=== PATIENT | male | born 1995 | race Caucasian/White ===

== ENCOUNTER 2017-03-06 20:50 | Emergency (ER) | payer MEDICAID ==
[~2017-03-06] VITALS: Ht 186.7 cm; Wt 77.6 kg
[~2017-03-06 20:50] MED LIST: INSU100I18 SQ-INSULIN; INSU100I28 SQ-INSULIN
[2017-03-06] MEDS ORDERED: LIDOCAINE 1%, 20ML ONE (21:53)
[2017-03-06] MEDS ORDERED: HYDROcodone/APAP 5/325 TABLET ONE (21:53)
[2017-03-06] MEDS ORDERED: DIPH,PERTUSS(ACELL),TET VAC/PF 0.5 ML IM-VACC ONE ×2 (21:54→22:00)
[2017-03-06] MEDS ORDERED: LIDOCAINE 1%, 20ML SQ ONE (22:00)
[2017-03-06] MEDS ORDERED: HYDROcodone/APAP 5/325 TABLET PO PRN (22:00)
[2017-03-06 23:21] VITALS: BP 115/67
[2017-03-06] MEDS ORDERED: BACITRACIN ZINC OINT 500U/GM, 0.9 GM ONE (23:26)
== END 2017-03-06 23:56 | disposition home or self-care (01) ==
LOC: ED 23:50
DX: S61.211A Laceration without foreign body of left index finger without damage to nail, initial encounter (principal); W25.XXXA Contact with sharp glass, initial encounter; Y93.89 Activity, other specified; Y92.89 Other specified places as the place of occurrence of the external cause; Y99.8 Other external cause status
CPT/HCPCS: 12041; 90471; 90715